=== PATIENT | male | born 1970 | race Caucasian/White ===

== ENCOUNTER 2016-06-06 05:42 | Outpatient (CLI) | payer BC ==
[~2016-06-06] VITALS: Ht 182.9 cm; Wt 117.9 kg
--- OUTSIDE RECORDS SUMMARY | 2016-06-06 05:45 | XMS REPORT | Continuity of Care Document ---
Author Author [facility] Organization [facility] Address Unknown Phone Unavailable Care Team Providers Care Employee Counselor Name Role Phone PCP Unavailable Source Comments Some departments are not documenting in the electronic medical record. If you do not see the information that you expected, contact Release of Information in the Health Information Management department at [phone] for further assistance in locating additional records.[facility] Active Allergies and Adverse Reactions No Known Allergies Current Medications Prescription Sig. Disp. Refills Start End Date Status Date losartan(+) (COZAAR) 100 Take 100 mg by mouth Active mg tablet daily. ALPRAZolam (XANAX) 0.25 Take 0.25 mg by mouth at Active mg tablet bedtime as needed for Anxiety. cephalexin (KEFLEX) 500 Take 1 Cap by mouth four 12 Cap 0 03/11/20 Active mg capsule times daily. Start day 16 before your procedure Active Problems Problem Noted Date General counseling and advice for procreative management 03/12/2016 Overview: Vasectomy 15 years ago 2013 left needle biopsy with ICSI - Dr Doss. 20+ eggs. 18 fertilized. 4 progressed to day 5. 2 transferred and couple had one child (boy). No embryos to freeze. 03/13 - no change in health. Plan for another TESE and ICSI cycle with [facility] planned. They want one more child and ?single embryo transfer. L ast Assessment & Plan: Formatting of this note may be different from the original. Biopsy reviewed again. He has right testicular pain and so will do left biopsy again. Apr 01 and planned. Orders Placed This Encounter diazePAM (VALIUM) 10 mg tablet cephalexin (KEFLEX) 500 mg capsule Most Recent Encounters Date Type Specialty Providers Description 04/05/2016 Documentation Urology Jose Roberto Daugherty MBBS 03/11/2016 Office Visit Urology Jose Roberto Daugherty MBBS General counseling and advice for procreative management (Primary Dx) Social History Tobacco Use Types Packs/Day Years Used Date Passive Smoke Exposure - Never Smoker Alcohol Use Drinks/Week oz/Week Comments Yes 0 Standard 0.0 drinks or equivalent Last Filed Vital Signs Vital Sign Reading Time Taken Blood Pressure 132/79 03/11/2016 2:43 PM INDUSTRIAL AUTOMATION SPECIALIST Pulse 63 03/11/2016 2:43 PM INDUSTRIAL AUTOMATION SPECIALIST Temperature - - Respiratory Rate - - Height 1.829 m (6') 03/11/2016 2:43 PM INDUSTRIAL AUTOMATION SPECIALIST Weight 121.383 kg (267 lb 9.6 03/11/2016 2:43 PM INDUSTRIAL AUTOMATION SPECIALIST oz) Body Mass Index 36.29 03/11/2016 2:43 PM INDUSTRIAL AUTOMATION SPECIALIST Oxygen Saturation - - Plan of Care Health Maintenance Due Date Last Done Comments Physical (Comprehensive) 11/01/1979 Exam Pertussis Vaccine 11/01/1983 Tetanus Vaccine 1989 Influenza Vaccine 12/28/2015 Results from Last 3 Months Not on file
[2016-06-06] MEDS ORDERED: ALPR0.254 PO (15:50)
[2016-06-06] MEDS ORDERED: LOSA100T28 PO (15:50)
== END 2016-06-06 15:53 ==
LOC: PREOP 05:42
PROVIDERS: ATTEND Surgery
DX: Z01.818 Encounter for other preprocedural examination (principal); Z80.0 Family history of malignant neoplasm of digestive organs

== ENCOUNTER 2016-06-10 07:23 | Day surgery (SDC) | payer BC ==
[~2016-06-10] VITALS: Ht 182.9 cm; Wt 117.9 kg
[~2016-06-10 07:23] MED LIST: ALPR0.254 PO; LOSA100T28 PO
--- OUTSIDE RECORDS SUMMARY | 2016-06-10 07:27 | XMS REPORT | Continuity of Care Document ---
Author Author [facility] Organization [facility] Address Unknown Phone Unavailable Care Team Providers Care Vp Corporate Development Name Role Phone PCP Unavailable Source Comments Some departments are not documenting in the electronic medical record. If you do not see the information that you expected, contact Release of Information in the Health Information Management department at [phone] for further assistance in locating additional records.[facility] Active Allergies and Adverse Reactions No Known [...] Taken Blood Pressure 132/79 03/11/2016 2:43 PM AUTOMOBILE SEAT COVER INSTALLER Pulse 63 03/11/2016 2:43 PM AUTOMOBILE SEAT COVER INSTALLER Temperature - - Respiratory Rate - - Height 1.829 m (6') 03/11/2016 2:43 PM AUTOMOBILE SEAT COVER INSTALLER Weight 121.383 kg (267 lb 9.6 03/11/2016 2:43 PM AUTOMOBILE SEAT COVER INSTALLER oz) Body Mass Index 36.29 03/11/2016 2:43 PM AUTOMOBILE SEAT COVER INSTALLER Oxygen Saturation - - Plan of Care Health Maintenance Due Date Last Done Comments Physical (Comprehensive) 11/01/1979 Exam Pertussis Vaccine 11/01/1983 Tetanus Vaccine 1989 Influenza Vaccine 12/28/2015 Results from Last 3 Months Not on file
--- OUTSIDE RECORDS SUMMARY | 2016-06-10 07:27 | XMS REPORT | Continuity of Care Document ---
Author Author [facility] Organization [facility] Address Unknown Phone Unavailable Care Team Providers Care Bullet Lubricating Machine Operator Name Role Phone PCP Unavailable Source Comments Some departments are not documenting in the electronic medical record. If you do not see the information that you expected, contact Release of Information in the Health Information Management department at [phone] for further assistance in locating additional records.[facility] Active Allergies and Adverse Reactions No [...] Taken Blood Pressure 132/79 03/11/2016 2:43 PM BARREL TESTER Pulse 63 03/11/2016 2:43 PM BARREL TESTER Temperature - - Respiratory Rate - - Height 1.829 m (6') 03/11/2016 2:43 PM BARREL TESTER Weight 121.383 kg (267 lb 9.6 03/11/2016 2:43 PM BARREL TESTER oz) Body Mass Index 36.29 03/11/2016 2:43 PM BARREL TESTER Oxygen Saturation - - Plan of Care Health Maintenance Due Date Last Done Comments Physical (Comprehensive) 11/01/1979 Exam Pertussis Vaccine 11/01/1983 Tetanus Vaccine 1989 Influenza Vaccine 12/28/2015 Results from Last 3 Months Not on file
[2016-06-10] MEDS ORDERED: NALOXONE 0.4 MG/ML 1 ML (NARCAN) VIAL IVP PRN (07:45)
[2016-06-10] MEDS ORDERED: FLUMAZENIL (ROMAZICON) 0.1 MG/ML 5 ML VIAL INJ PRN (07:45)
[2016-06-10] MEDS ORDERED: NS IV 500 ML 500 ML ONE (07:46)
[2016-06-10] MEDS ORDERED: NS IV 500 ML 500 ML IV PRN (08:00)
[2016-06-10 08:06] VITALS: BP 126/72
[2016-06-10] MEDS ORDERED: fentaNYL INJECTION 100 MCG/2 ML AMP ONE ×2 (08:17)
--- NOTE | 2016-06-10 08:17 | Pre-Op Note & Conscious Sedat ---
Pre-Operative Progress Note H&P Reviewed The H&P was reviewed, patient examined and no changes noted. Date H&P Reviewed: Jun 10, 2016 Time H&P Reviewed: 08:17 Pre-Op Diagnosis: screening. Family history of colon cancer Conscious Sedation Pre-Proced ASA Class: 2 Airway Mallampati Classification: ([place] appropriate class) I. II. III, IV Lungs Heart ASA score ASA 1: a normal healthy patient ASA 2: a patient with a mild systemic disease (mid diabetes, controlled hypertension, obesity ASA 3: a patient with a severe systemic disease that limits activity (angina , COPD, prior Myocardial infarction) ASA 4: a patient with an incapacitating disease that is a constant threat to life (CHF, renal failure) ASA 5: a moribund patient not expected to survive 24 hrs. (ruptured aneurysm) ASA 6: a declared brain patient whose organs are being harvested. For emergent operations, add the letter E after the classification Grade 1 Sedation Plan: Discussed options with patient/fam Note The patient is an appropriate candidate to undergo the planned procedure, sedation, and anesthesia. The patient immediately re-assessed prior to indication. ABHAY MELTON MD Jun 10, 2016 8:17 am
[2016-06-10] MEDS ORDERED: MIDAZOLAM 2 MG/2 ML (VERSED) VIAL ONE ×5 (08:18)
[2016-06-10] MEDS: fentaNYL INJECTION 100 MCG/2 ML AMP IVP PRN ×2 (08:25→08:27)
[2016-06-10] MEDS: MIDAZOLAM 2 MG/2 ML (VERSED) VIAL IVP PRN ×4 (08:26→08:34)
--- NOTE | 2016-06-10 08:49 | Progress Note-Post Operative ---
Post-Operative Progess Note Pre-Operative Diagnosis screening. Family history of colon cancer Post-Operative Diagnosis normal exam Post-Op Procedure Note Date of Procedure: Jun 10, 2016 Name of Procedure: colonoscopy to cecum Anesthesia Type sedation ABHAY MELTON MD Jun 10, 2016 8:49 am
--- NOTE | 2016-06-10 08:50 | Discharge Inst-Simple/Standard ---
Discharge Inst-Standard Discharge Medications New, Converted or Re-Newed RX: Other Patient Instructions/Follow Up Plan of Care/Instructions/FU: repeat colonoscopy in 5 years Activity as Tolerated: Yes Discharge Diet: No Restrictions ABHAY MELTON MD Jun 10, 2016 8:50 am
[2016-06-10 09:10] VITALS: BP 110/62
--- NOTE | 2016-06-10 09:32 | PROCEDURE REPORT ---
PROCEDURE PHYSICIAN: ABHAY MELTON DATE OF PROCEDURE: 06/10/2016 PROCEDURE: Screening colonoscopy. SURGEON: Dr. Melton. INDICATION FOR THE PROCEDURE: This gentleman, with a strong family history of colon cancer, came in for screening colonoscopy. Informed consent was obtained after reviewing the procedure in detail. DESCRIPTION OF PROCEDURE: He was placed in left lateral decubitus position and his vital signs were monitored. Conscious sedation was achieved using Versed. Digital rectal examination was unremarkable. The colonoscope was then introduced into the rectum and advanced all the way up to the cecum. The scope was then withdrawn slowly and the mucosa examined in a systematic fashion. The quality of bowel preparation was excellent. There was no abnormality. He tolerated the procedure well and was taken back to the nursing area in a stable condition. IMPRESSION: 1. Normal screening colonoscopy. 2. Strong family history. 3. Recommend repeating in 5 years. Job ID: [id number] Dictated Date: 06/10/2016 08:46:31 Belt Splicer Date: 06/10/2016 09:30:27 / dilcia GARNER
[2016-06-10 09:40] VITALS: BP 101/74
[2016-06-10 09:55] VITALS: BP 101/74
== END 2016-06-10 09:55 | disposition home or self-care (01) ==
LOC: ENDO 07:23
PROVIDERS: ATTEND Surgery
DX: Z12.11 Encounter for screening for malignant neoplasm of colon (principal); Z80.0 Family history of malignant neoplasm of digestive organs